=== PATIENT | female | born 1945 | race Caucasian/White ===

== ENCOUNTER 2019-02-11 11:05 | Day surgery (SDC) | payer MEDICARE, BC ==
[~2019-02-11 11:05] MED LIST: Buffered Lidocaine 1% SYRIN* 1 ML/SYRINGE INTRADERM ONE; Lactated Ringers 1000 ML Bag* 1,000 ML IV SCH; Sodium Citrate/Citric Acid* 15 ML UDC PO ONE
[2019-02-11] MEDS ORDERED: Sodium Citrate/Citric Acid* 15 ML UDC ONE (11:29)
[2019-02-11] MEDS ORDERED: Buffered Lidocaine 1% SYRIN* 1 ML/SYRINGE INTRADERM ONE (11:29)
[2019-02-11] MEDS ORDERED: hydrALAZINE IV* 20 MG/ML VIAL ONE (12:27)
[2019-02-11] MEDS ORDERED: Propofol* 10 MG/ML 20 ML BTL ONE (13:05)
[2019-02-11] MEDS ORDERED: Lidocaine 2% PF * 5 ML VIAL ONE (13:05)
[2019-02-11] MEDS ORDERED: Rocuronium* 10 MG/ML VIAL ONE (13:06)
[2019-02-11] MEDS ORDERED: Midazolam* 1 MG/ML 2 ML VIAL (2 MG) ONE (13:07)
[2019-02-11] MEDS ORDERED: fentaNYL* 50 MCG/ML 2 ML VIAL (100 MCG VIAL) ONE (13:07)
[2019-02-11] MEDS ORDERED: Benzocaine/Butamben/Tetracain (CETACAINE - SINGLE USE) 5 gm TOPICAL ONE (13:07)
[2019-02-11] MEDS ORDERED: Sugammadex * 200 MG/2 ML VIAL IV PUSH ONE (13:47)
[2019-02-11] MEDS ORDERED: Naloxone* 0.4 MG/ML 1 ML VIAL IV PRN (15:01)
[2019-02-11 15:29] VITALS: BP 131/50
--- NOTE | 2019-02-11 15:41 | PRO ---
BRONCHOSCOPY REPORT: DATE OF PROCEDURE: 02/11/19 - [facility] PROCEDURE PERFORMED: Bronchoscopy with endobronchial ultrasound guided fine needle aspiration from mediastinal hilar nodes. PREPROCEDURAL DIAGNOSES: Lung nodule, PET positive lymph nodes. ANESTHESIA: General anesthesia. ANESTHESIOLOGIST: Dr. Marie DESCRIPTION OF PROCEDURE: Informed consent was obtained from the patient prior to the procedure after all the risks and benefits were thoroughly explained. Appropriate time out was performed and agreed on by attending staff. The patient was intubated with size a 8.5 endotracheal tube. Flexible Olympus bronchoscope was inserted through ET tube for airway inspection. ET tube positioning was confirmed to review 1 cm above the level of damion and the ET tube was readjusted. Station 7 lymph node was then accessed with 4 passes. Rapid onsite evaluation revealed lymphatic tissue with no malignant cells. Station R4 was then assessed with 2 passes. Rapid onsite evaluation revealed lymphatic tissue on pass 2 with no malignant cells. R10 was also accessed with 2 passes. Rapid onsite evaluation revealed lymphatic tissue with no malignant cells. R12 was also enlarged and was accessed with 2 passes. Rapid onsite evaluation revealed lymphatic tissue with no malignant cells. Rest of the specimen was placed in CytoLyt. Thin secretions were noted and were suctioned. No enlarged lymph nodes were seen on the left side. The patient tolerated the procedure well. The patient was extubated and seen in Recovery in optimal condition. [id number]/[facility] #: [id number] [facility]
== END 2019-02-11 15:29 | disposition home or self-care (01) ==
LOC: OR 11:05
PROVIDERS: ATTEND Internal Medicine
DX: J98.4 Other disorders of lung (principal); R59.0 Localized enlarged lymph nodes; Z87.891 Personal history of nicotine dependence; Z85.3 Personal history of malignant neoplasm of breast; I10 Essential (primary) hypertension; E78.00 Pure hypercholesterolemia, unspecified; Z85.828 Personal history of other malignant neoplasm of skin
CPT/HCPCS: 88172; 88173; 88177; 88305; A9270-GY; J0360; J2250; J2704; J3010

== ENCOUNTER → 2019-07-22 07:37 | Day surgery (SDC) | payer MEDICARE, BC ==
[~2019-07-22 07:37] MED LIST changes: +Cyclopentolate 1% OPTH.SOL* 2 ML BTL ONE; +Ketorolac 0.5% OPHTH (NF) 0.5 % 5 ML BTL ONE; -Lactated Ringers 1000 ML Bag* 1,000 ML IV SCH; +Lidocaine 1% MPF ** 5 ML VIAL ONE; +Lidocaine 2% w/ EPI 1:200,000* 20 ML SDV VIAL ONE; +Midazolam* 1 MG/ML 2 ML VIAL (2 MG) ONE; +Neomycin/Polymy/Dex OPTH.SUSP* MAXITROL 0.1% 5 ML ONE; +Phenylephrine OPHTH SOL 2.5%* 2 ML ONE; +Povidone Iodine 5% OPTH* 30 ML BTL ONE; +Proparacaine 0.5% OPHTH.SOL* 15 ML BTL ONE; -Sodium Citrate/Citric Acid* 15 ML UDC PO ONE; +acetaZOLAMIDE TAB* 250 MG ONE
--- NOTE | 2019-07-22 11:15 | OP ---
OPERATIVE NOTE: DATE OF OPERATION: 07/22/19 DATE OF : 43 SURGEON: Khurram Madison MD. PREOPERATIVE DIAGNOSIS: Cataract, left eye. POSTOPERATIVE DIAGNOSIS: Cataract. left eye. OPERATIVE PROCEDURE: Extracapsular cataract extraction with IOL, left eye. PROCEDURE: The patient was brought to the operating room after being given 1/2% Alcaine with epineph rine drops in the preoperative area. The eye was prepped and draped in the usual sterile fashion. S terile drape and eyelid speculum were placed. Again, topical 1/2% Alcaine with epinephrine was given . A paracentesis incision was made at the 3 o'clock position with the No.75 blade. Clear cornea inc ision 2.2 x 2.2 mm was created at the 6 o'clock position starting at the anterior limbus using the 2. 2 mm keratome. The anterior chamber was irrigated with 0.4 mL of 1% non-preservative intracameral li docaine and filled with DisCoVisc. A capsulorrhexis was completed using the cystotome and the Utrata forceps. Hydrodissection was performed with balanced salt solution. The lens nucleus was removed wi th the Phacoemulsification handpiece without incident. Cortex was removed with the irrigation-aspira tion handpiece. The capsular bag was re-inflated using DisCoVisc and an [id number] implant was insert ed with the shooter. All measurements confirmed with ORA. The irrigation-aspiration handpiece was u sed to remove all residual DisCoVisc. The eye was refilled with balanced salt solution and the wound checked and found to be watertight. Topical Maxitrol drops were given. [id number]/[facility] #: [id number]
[2019-07-29 14:21] VITALS: BP 168/52
== END | disposition home or self-care (01) ==
LOC: OREAST 07:37
PROVIDERS: ATTEND Specialist
DX: H25.812 Combined forms of age-related cataract, left eye (principal); H34.8322 Tributary (branch) retinal vein occlusion, left eye, stable; I10 Essential (primary) hypertension; K21.9 Gastro-esophageal reflux disease without esophagitis; E78.00 Pure hypercholesterolemia, unspecified; Z87.891 Personal history of nicotine dependence; R91.1 Solitary pulmonary nodule; I65.22 Occlusion and stenosis of left carotid artery
CPT/HCPCS: A9270-GY; J2250; V2632

== ENCOUNTER 2019-07-29 10:19 | Day surgery (SDC) | payer MEDICARE, BC ==
[2019-07-22 10:22] VITALS: BP 136/50
[~2019-07-29 10:19] MED LIST changes: -Midazolam* 1 MG/ML 2 ML VIAL (2 MG) ONE
[2019-07-29] MEDS ORDERED: Midazolam* 1 MG/ML 2 ML VIAL (2 MG) ONE (13:16)
--- NOTE | 2019-07-29 21:16 | OP ---
DATE OF OPERATION: 07/29/19 [facility] DATE OF : 43 SURGEON: Khurram Madison MD PREOPERATIVE DIAGNOSIS: Cataract, right eye. POSTOPERATIVE DIAGNOSIS: Cataract, right eye. OPERATIVE PROCEDURE: Extracapsular cataract extraction with intraocular lens implant, right eye. DESCRIPTION OF PROCEDURE: The patient was brought to the operating room after being given 1/2% Alcaine with epinephrine drops in the preoperative area. The eye was prepped and draped in the usual sterile fashion. Sterile drape and eyelid speculum were placed. Again, topical 1/2% Alcaine with epinephrine was given. A paracentesis incision was made at the 9 o'clock position with the No.75 blade. Clear cornea incision 2.2 x 2.2-mm was created at the 12 o'clock position starting at the anterior limbus using the 2.2-mm keratome. The anterior chamber was irrigated with 0.4 mL of 1% non-preservative intracameral lidocaine and filled with DisCoVisc. A capsulorrhexis was completed using the cystotome and the Utrata forceps. Hydrodissection was performed with balanced salt solution. The lens nucleus was removed with the Phacoemulsification handpiece without incident. Cortex was removed with the irrigation-aspiration handpiece. The capsular bag was re-inflated using DisCoVisc and an [id number] implant was inserted with the shooter. The irrigation-aspiration handpiece was used to remove all residual DisCoVisc. he eye was refilled with balanced salt solution and the wound checked and found to be watertight. Topical Maxitrol drops were given. [id number]/[facility] #: [id number] [facility]
== END 2019-07-29 14:10 | disposition home or self-care (01) ==
LOC: OREAST 10:19
PROVIDERS: ATTEND Specialist
DX: H25.811 Combined forms of age-related cataract, right eye (principal); H34.8322 Tributary (branch) retinal vein occlusion, left eye, stable; I10 Essential (primary) hypertension; E78.00 Pure hypercholesterolemia, unspecified; Z87.891 Personal history of nicotine dependence; R91.1 Solitary pulmonary nodule; Z88.0 Allergy status to penicillin; Z88.1 Allergy status to other antibiotic agents
CPT/HCPCS: A9270-GY; J2250; V2632

== ENCOUNTER 2023-03-11 10:43 | Inpatient (IN) ==
[2023-03-11 11:59] LABS: ABS Lymphocytes 0.8 10^3/uL (1.0-4.8); ABS Monocytes 0.3 10^3/uL (0.0-0.9); ABS Neutrophils 4.4 10^3/uL (1.5-7.6); Eosinophil % 0.8 %; Hematocrit 31.2 % (35-45); Hemoglobin 10.7 g/dL (11.5-14.3); Lymphocyte % 14.9 %; Mean Corpuscular Hemoglobin 29.5 pg (27-33); Mean Corpuscular Hgb Conc 34.4 g/dL (31-36); Mean Corpuscular Volume 85.8 fL (80-97); Mean Platelet Volume 7.2 fL (7.5-11.2); Platelet Count 254 10^3/uL (150-450); Red Blood Count 3.63 10^6/uL (3.63-4.92); Red Cell Distribution Width 14.4 % (12-17); White Blood Count 5.7 10^3/uL (3.8-11.8)
[2023-03-11 12:21] LABS: High Sens Troponin Baseline 4 pg/mL (<15)
[2023-03-11 12:42] LABS: ALT 11 U/L (7-52); AST 16 U/L (13-39); Albumin/Globulin Ratio 1.4 (1-3); Alkaline Phosphatase 67 U/L (35-149); Anion Gap 9 mmol/L (2-16); Blood Urea Nitrogen 16 mg/dL (6-24); C Reactive Protein 8.87 mg/L (<8.01); CO2 Carbon Dioxide 25 mmol/L (22-32); Calcium 9.5 mg/dL (8.6-10.3); Chloride 101 mmol/L (101-111); Creatinine, Serum 0.89 mg/dL (0.51-0.95); Globulin 2.8 g/dL (2-4); Glucose 97 mg/dL (70-100); Potassium 4.4 mmol/L (3.5-5.0); Sodium 135 mmol/L (135-145); Total Protein 6.8 g/dL (6.4-8.9); eGFR CKD-EPI 66.3 (>60)
[2023-03-11 12:47] LABS: TSH Ultra Thyroid Stim Horm 1.18 mcIU/mL (0.34-5.60)
[2023-03-11 13:25] LABS: High Sensitivity Troponin 1 Hr 5 pg/mL (<15)
[2023-03-11 13:55] LABS: Urine Appearance Clear; Urine Bilirubin Negative (Negative); Urine Blood Negative (Negative); Urine Color Yellow; Urine Glucose Negative (Negative); Urine Ketones Trace (Negative); Urine Nitrite Negative (Negative); Urine Protein Negative (Negative); Urine Specific Gravity 1.011 (1.002-1.030); Urine Urobilinogen Negative (Negative)
[2023-03-11 14:16] LABS: Urine Bacteria Absent (Absent); Urine Red Blood Cell Trace(0-2/hpf) (Absent); Urine Squamous Epithelial Cell Present (Absent); Urine White Blood Cell Trace(0-5/hpf) (Absent)
[2023-03-11 18:46] LABS: Folate > 20.00 ng/mL (5.90-24.80)
[2023-03-11 18:47] LABS: Vitamin B12 342 pg/mL (180-914)
[2023-03-11 18:51] LABS: Vitamin D Total 25(OH) 37.6 ng/mL (20-50)
[2023-03-11] MEDS ORDERED: hydrALAZINE 20 mg/ml 1 ML Vial IV IV SLOW PU ONE (19:59)
[2023-03-11] MEDS: Enoxaparin 40 MG/0.4 ML SYR SUBCUT SCH (21:32)
[2023-03-11] MEDS: Acetaminophen IV 1 GM/100ML 1,000 MG/100 ML BAG IV PRN (21:38)
[2023-03-12] MEDS: Lidocaine PATCH 4% TOPICAL PRN (00:48)
[2023-03-12 04:56] LABS: ABS Basophils 0.1 10^3/uL (0.0-0.1); ABS Eosinophils 0.1 10^3/uL (0.0-0.5); ABS Lymphocytes 1.1 10^3/uL (1.0-4.8); ABS Monocytes 0.5 10^3/uL (0.0-0.9); ABS Neutrophils 5.3 10^3/uL (1.5-7.6); Eosinophil % 1.3 %; Hematocrit 32.3 % (35-45); Hemoglobin 11.5 g/dL (11.5-14.3); Lymphocyte % 15.3 %; Mean Corpuscular Hemoglobin 29.9 pg (27-33); Mean Corpuscular Hgb Conc 35.7 g/dL (31-36); Mean Corpuscular Volume 83.7 fL (80-97); Platelet Count 268 10^3/uL (150-450); Red Blood Count 3.85 10^6/uL (3.63-4.92); Red Cell Distribution Width 14.2 % (12-17); White Blood Count 7.1 10^3/uL (3.8-11.8)
[2023-03-12 05:12] LABS: Calcium 9.7 mg/dL (8.6-10.3); Creatinine, Serum 0.79 mg/dL (0.51-0.95); Phosphorus 3.9 mg/dL (2.5-5.0); Potassium 4.1 mmol/L (3.5-5.0); eGFR CKD-EPI 76.5 (>60)
[2023-03-12] MEDS: Acetaminophen IV 1 GM/100ML 1,000 MG/100 ML BAG IV PRN (06:25)
[2023-03-12] MEDS ORDERED: Polyethylene Glycol 3350 17 GM PACKET PO PRN (06:39)
[2023-03-12] MEDS: Multivitamins/Minerals TAB PO SCH (09:16)
[2023-03-12] MEDS: Enoxaparin 40 MG/0.4 ML SYR SUBCUT SCH (18:33)
[2023-03-12] MEDS ORDERED: Senna TAB 8.6 mg TAB PO PRN (20:23)
[2023-03-12] MEDS ORDERED: Magnesium Hydroxide LIQ 30 ML UDC PO PRN (20:23)
[2023-03-12] MEDS ORDERED: Sodium Phosphate ADULT ENEMA 133 ML BTL PR PRN (20:23)
[2023-03-12] MEDS ORDERED: Gadoteridol (CONTRAST) 279.3 MG/ML 10 ML IV ONE (21:36)
[2023-03-12] MEDS: Magnesium Hydroxide LIQ 30 ML UDC PO SCH (22:16)
[2023-03-13] MEDS: Lidocaine PATCH 4% TOPICAL PRN (02:29)
[2023-03-13 06:30] LABS: INR 1.29 (0.88-1.18)
[2023-03-13] MEDS: Magnesium Hydroxide LIQ 30 ML UDC PO SCH (11:22)
[2023-03-13] MEDS: Multivitamins/Minerals TAB PO SCH (11:24)
[2023-03-13] MEDS: Enoxaparin 40 MG/0.4 ML SYR SUBCUT SCH (19:02)
[2023-03-14] MEDS: Multivitamins/Minerals TAB PO SCH (09:12)
[2023-03-15] MEDS: Lidocaine PATCH 4% TOPICAL PRN (04:46)
[2023-03-15] MEDS ORDERED: Buffered Lidocaine 1% SYRIN 1 ml INTRADERM ONE (06:00)
[2023-03-15] MEDS: Multivitamins/Minerals TAB PO SCH (08:06)
[2023-03-15] MEDS ORDERED: Thrombin 5,000 UNITS 1 APPLIC KIT - topical use - TOPICAL ONE (10:58)
[2023-03-15] MEDS ORDERED: Lidocaine 1% w EPI 1:100,000 MDV 20 ML VIAL ONE (10:58)
[2023-03-15] MEDS ORDERED: ceFAZolin VIAL VIAL ONE (10:59)
[2023-03-15] MEDS ORDERED: Gelfoam 12-7 ADSORBABL SPONGE ONE (10:59)
[2023-03-15] MEDS ORDERED: Gelfoam Sponge SIZE 100 SPONGE ONE (11:02)
[2023-03-15] MEDS ORDERED: Rocuronium 50 mg VIAL 10 mg/ml 5 ml VIAL (50 mg) ONE (11:35)
[2023-03-15] MEDS ORDERED: Midazolam 2 mg/2 ml VIAL 1 mg/ml 2 ml VIAL (2 mg) ONE (11:35)
[2023-03-15] MEDS ORDERED: fentaNYL 250 mcg/5 ml 50 MCG/ML 5 ml VIAL (250 MCG) ONE (11:35)
[2023-03-15] MEDS ORDERED: Lidocaine 2% PF 5 ML VIAL ONE (11:40)
[2023-03-15] MEDS ORDERED: Propofol 10 MG/ML 20 ML BTL ONE (11:40)
[2023-03-15] MEDS ORDERED: ceFAZolin 2 GM in NS PREMIX 2 GM/100 ML BAG IVPB ONE (12:04)
[2023-03-15] MEDS ORDERED: Phenylephrine IV 10 MG/ML 1 ml VIAL ONE (12:58)
[2023-03-15] MEDS ORDERED: Ondansetron 4 mg VIAL 2 MG/ML 2 ml VIAL ONE (13:37)
[2023-03-15] MEDS ORDERED: Dexamethasone IV 4 MG/ML VIAL 1 ml VIAL ONE (13:37)
[2023-03-15] MEDS ORDERED: HYDROmorphone 0.5 MG/0.5 ML SYRINGE ONE (14:05)
[2023-03-15] MEDS ORDERED: Prochlorperazine 5 mg/ml 2 ml VIAL (10 mg) IV PRN (14:22)
[2023-03-15] MEDS ORDERED: Acetaminophen IV 1 GM/100ML 1,000 MG/100 ML BAG IV ONE ×2 (14:23→15:01)
[2023-03-15] MEDS ORDERED: HYDROmorphone 1 MG/1 ML SYRINGE IV PRN (14:36)
[2023-03-15] MEDS ORDERED: Naloxone 0.4 mg VIAL 0.4 mg/ml 1 ml VIAL IV PRN (14:36)
[2023-03-15] MEDS ORDERED: Metoprolol Tartrate 5 mg VIAL 5 ml VIAL (1 mg/ml) ONE (14:46)
[2023-03-15] MEDS: Lactated Ringers 1000 ml BAG 1,000 ML IV SCH (16:18)
[2023-03-15] MEDS ORDERED: Morphine 2 MG/ML SYRINGE IV PRN (16:28)
[2023-03-16] MEDS: Lactated Ringers 1000 ml BAG 1,000 ML IV SCH (00:19)
[2023-03-16 06:45] LABS: ABS Lymphocytes 0.6 10^3/uL (1.0-4.8); ABS Monocytes 0.5 10^3/uL (0.0-0.9); ABS Neutrophils 6.8 10^3/uL (1.5-7.6); Calcium 8.9 mg/dL (8.6-10.3); Hematocrit 26.3 % (35-45); Lymphocyte % 8.1 %; Mean Corpuscular Hemoglobin 29.7 pg (27-33); Mean Corpuscular Hgb Conc 34.3 g/dL (31-36); Mean Corpuscular Volume 86.6 fL (80-97); Mean Platelet Volume 7.6 fL (7.5-11.2); Platelet Count 238 10^3/uL (150-450); Potassium 4.7 mmol/L (3.5-5.0); Red Blood Count 3.03 10^6/uL (3.63-4.92); Red Cell Distribution Width 14.6 % (12-17); White Blood Count 7.9 10^3/uL (3.8-11.8)
[2023-03-16 06:51] LABS: Creatinine, Serum 0.73 mg/dL (0.51-0.95); eGFR CKD-EPI 84.1 (>60)
[2023-03-16] MEDS: Multivitamins/Minerals TAB PO SCH (08:57)
[2023-03-17 06:02] LABS: ABS Basophils 0.1 10^3/uL (0.0-0.1); ABS Eosinophils 0.1 10^3/uL (0.0-0.5); ABS Lymphocytes 1.5 10^3/uL (1.0-4.8); ABS Monocytes 0.5 10^3/uL (0.0-0.9); ABS Neutrophils 5.3 10^3/uL (1.5-7.6); Eosinophil % 1.7 %; Hemoglobin 9.5 g/dL (11.5-14.3); Lymphocyte % 19.9 %; Mean Corpuscular Hemoglobin 30.1 pg (27-33); Mean Platelet Volume 7.4 fL (7.5-11.2); Platelet Count 259 10^3/uL (150-450); Red Blood Count 3.14 10^6/uL (3.63-4.92); Red Cell Distribution Width 14.3 % (12-17); White Blood Count 7.5 10^3/uL (3.8-11.8)
[2023-03-17 06:17] LABS: Calcium 9.1 mg/dL (8.6-10.3); Creatinine, Serum 0.79 mg/dL (0.51-0.95); Potassium 4.2 mmol/L (3.5-5.0); eGFR CKD-EPI 76.5 (>60)
[2023-03-17] MEDS ORDERED: diazePAM INJ CARPUJECT 5 MG/ML SYRINGE IV ONE (06:33)
[2023-03-17] MEDS ORDERED: Acetaminophen IV 1 GM/100ML 1,000 MG/100 ML BAG IV ONE (07:22)
[2023-03-17] MEDS: Multivitamins/Minerals TAB PO SCH (08:04)
[2023-03-17] MEDS ORDERED: Dexamethasone IV 4 MG/ML VIAL 1 ml VIAL IV SLOW PU ONE (09:47)
[2023-03-18] MEDS: Multivitamins/Minerals TAB PO SCH (09:39)
[2023-03-19 05:48] VITALS: BP 168/67
[2023-03-19] MEDS: Multivitamins/Minerals TAB PO SCH (08:23)
== END 2023-03-19 09:06 | DRG 518 ==
LOC: EDHOLD 10:43 → ED 10:43 → EDHOLD 18:52 → MED 03-12 10:58 → SUATTDRO 03-13 13:06 → SSU 03-15 15:29
PROVIDERS: ADMIT Internal Medicine; ATTEND Hospitalist

== ENCOUNTER 2023-03-18 14:42 | Inpatient (IN) ==
[2023-03-19] MEDS ORDERED: Magnesium Hydroxide LIQ 30 ML UDC PO PRN (11:12)
[2023-03-19] MEDS ORDERED: Senna TAB 8.6 mg TAB PO PRN (11:12)
[2023-03-19] MEDS ORDERED: Polyethylene Glycol 3350 17 GM PACKET PO PRN (19:59)
[2023-03-20 07:38] LABS: ABS Lymphocytes 0.5 10^3/uL (1.0-4.8); ABS Monocytes 0.2 10^3/uL (0.0-0.9); ABS Neutrophils 5.9 10^3/uL (1.5-7.6); Hematocrit 30.2 % (35-45); Hemoglobin 10.4 g/dL (11.5-14.3); Lymphocyte % 7.3 %; Mean Corpuscular Hemoglobin 29.9 pg (27-33); Mean Corpuscular Hgb Conc 34.6 g/dL (31-36); Mean Corpuscular Volume 86.4 fL (80-97); Mean Platelet Volume 7.3 fL (7.5-11.2); Platelet Count 353 10^3/uL (150-450); Red Blood Count 3.49 10^6/uL (3.63-4.92); Red Cell Distribution Width 14.2 % (12-17); White Blood Count 6.6 10^3/uL (3.8-11.8)
[2023-03-20 07:42] LABS: Albumin 3.9 g/dL (3.2-5.2); Albumin/Globulin Ratio 1.4 (1-3); Calcium 8.5 mg/dL (8.6-10.3); Creatinine, Serum 0.76 mg/dL (0.51-0.95); Globulin 2.8 g/dL (2-4); Potassium 4.4 mmol/L (3.5-5.0); Total Bilirubin 0.5 mg/dL (0.2-1.0); Total Protein 6.7 g/dL (6.4-8.9); eGFR CKD-EPI 80.2 (>60)
[2023-03-20] MEDS: Heparin 5000 UNITS/ML 1 mL VIAL SUBCUT SCH (21:33)
[2023-03-21] MEDS: Heparin 5000 UNITS/ML 1 mL VIAL SUBCUT SCH ×2 (07:29→21:45)
[2023-03-22 09:06] VITALS: BP 142/60
[2023-03-22] MEDS ORDERED: Iohexol 350 (CONTRAST) 500 ML MDV IV ONE (09:47)
== END 2023-03-22 09:45 | disposition short-term general hospital (02) | DRG 552 ==
LOC: PMRU 03-19 10:38 → UNDODISIN 03-22 09:45
PROVIDERS: ADMIT Physical Medicine & Rehabilitation; ATTEND Physical Medicine & Rehabilitation

== ENCOUNTER 2023-03-28 10:01 | Inpatient (IN) ==
[2023-03-28] MEDS ORDERED: Senna TAB 8.6 mg TAB PO PRN (16:42)
[2023-03-28] MEDS: Magnesium Hydroxide LIQ 30 ML UDC PO PRN (21:27)
[2023-03-28] MEDS: Heparin 5000 UNITS/ML 1 mL VIAL SUBCUT SCH (21:28)
[2023-03-29 06:22] LABS: ABS Eosinophils 0.2 10^3/uL (0.0-0.5); ABS Lymphocytes 0.7 10^3/uL (1.0-4.8); ABS Monocytes 0.6 10^3/uL (0.0-0.9); ABS Neutrophils 4.5 10^3/uL (1.5-7.6); Eosinophil % 3.1 %; Hematocrit 26.1 % (35-45); Hemoglobin 9.2 g/dL (11.5-14.3); Lymphocyte % 11.7 %; Mean Corpuscular Hemoglobin 30.1 pg (27-33); Mean Corpuscular Hgb Conc 35.1 g/dL (31-36); Mean Corpuscular Volume 85.6 fL (80-97); Mean Platelet Volume 6.2 fL (7.5-11.2); Platelet Count 369 10^3/uL (150-450); Red Blood Count 3.05 10^6/uL (3.63-4.92); Red Cell Distribution Width 14.4 % (12-17)
[2023-03-29 06:44] LABS: Albumin 3.3 g/dL (3.2-5.2); Albumin/Globulin Ratio 1.1 (1-3); Calcium 8.8 mg/dL (8.6-10.3); Creatinine, Serum 1.12 mg/dL (0.51-0.95); Globulin 2.9 g/dL (2-4); Potassium 4.5 mmol/L (3.5-5.0); Total Bilirubin 0.5 mg/dL (0.2-1.0); Total Protein 6.2 g/dL (6.4-8.9); eGFR CKD-EPI 50.3 (>60)
[2023-03-29] MEDS: Heparin 5000 UNITS/ML 1 mL VIAL SUBCUT SCH ×2 (08:28→21:55)
[2023-03-30] MEDS: Heparin 5000 UNITS/ML 1 mL VIAL SUBCUT SCH ×2 (09:32→21:02)
[2023-03-30] MEDS: Magnesium Hydroxide LIQ 30 ML UDC PO PRN (20:55)
[2023-03-31] MEDS: Heparin 5000 UNITS/ML 1 mL VIAL SUBCUT SCH ×2 (08:53→20:58)
[2023-04-01] MEDS: Heparin 5000 UNITS/ML 1 mL VIAL SUBCUT SCH ×2 (08:32→20:43)
[2023-04-02] MEDS: Heparin 5000 UNITS/ML 1 mL VIAL SUBCUT SCH ×2 (08:05→20:58)
[2023-04-03] MEDS: Heparin 5000 UNITS/ML 1 mL VIAL SUBCUT SCH ×2 (07:21→21:26)
[2023-04-04] MEDS: Heparin 5000 UNITS/ML 1 mL VIAL SUBCUT SCH ×2 (07:30→21:36)
[2023-04-05 04:58] VITALS: BP 127/64
[2023-04-05 06:07] LABS: ABS Basophils 0.1 10^3/uL (0.0-0.1); ABS Eosinophils 0.2 10^3/uL (0.0-0.5); ABS Lymphocytes 0.7 10^3/uL (1.0-4.8); ABS Monocytes 0.3 10^3/uL (0.0-0.9); ABS Neutrophils 1.7 10^3/uL (1.5-7.6); Hematocrit 25.4 % (35-45); Hemoglobin 8.8 g/dL (11.5-14.3); Lymphocyte % 24.6 %; Mean Corpuscular Hemoglobin 29.9 pg (27-33); Mean Corpuscular Hgb Conc 34.7 g/dL (31-36); Mean Corpuscular Volume 86.4 fL (80-97); Mean Platelet Volume 6.8 fL (7.5-11.2); Nucleated Red Blood Cells % 0.1 /100 WBC (0.0-0.4); Platelet Count 340 10^3/uL (150-450); Red Blood Count 2.94 10^6/uL (3.63-4.92); Red Cell Distribution Width 14.5 % (12-17)
[2023-04-05 06:24] LABS: Albumin 3.4 g/dL (3.2-5.2); Albumin/Globulin Ratio 1.2 (1-3); Calcium 8.7 mg/dL (8.6-10.3); Creatinine, Serum 1.24 mg/dL (0.51-0.95); Globulin 2.8 g/dL (2-4); Potassium 4.6 mmol/L (3.5-5.0); Total Bilirubin 0.5 mg/dL (0.2-1.0); Total Protein 6.2 g/dL (6.4-8.9); eGFR CKD-EPI 44.5 (>60)
[2023-04-05] MEDS: Heparin 5000 UNITS/ML 1 mL VIAL SUBCUT SCH (08:34)
== END 2023-04-05 16:49 | disposition home or self-care (01) | DRG 551 ==
LOC: PMRU 13:55
PROVIDERS: ADMIT Physical Medicine & Rehabilitation; ATTEND Physical Medicine & Rehabilitation

== ENCOUNTER 2024-07-14 16:39 | Observation (INO) ==
[2024-07-14] MEDS: Morphine 4 MG/ML VIAL (1 ml) IV ONE ×2 (17:57→20:54)
[2024-07-14] MEDS: Ondansetron 4 mg VIAL 2 MG/ML 2 ml VIAL IV ONE (17:57)
[2024-07-14 18:00] LABS: ABS Basophils 0.1 10^3/uL (0.0-0.1); ABS Lymphocytes 0.4 10^3/uL (1.0-4.8); ABS Monocytes 0.3 10^3/uL (0.0-0.9); ABS Neutrophils 11.8 10^3/uL (1.5-7.6); Eosinophil % 0.1 %; Hematocrit 36.3 % (35-45); Lymphocyte % 3.5 %; Mean Corpuscular Hemoglobin 26.6 pg (27-33); Mean Corpuscular Hgb Conc 33.2 g/dL (31-36); Mean Corpuscular Volume 80.2 fL (80-97); Mean Platelet Volume 6.8 fL (7.5-11.2); Platelet Count 556 10^3/uL (150-450); Red Blood Count 4.52 10^6/uL (3.63-4.92); Red Cell Distribution Width 15.6 % (12-17); White Blood Count 12.7 10^3/uL (3.8-11.8)
[2024-07-14 18:01] LABS: INR 1.3 (0.85-1.14)
[2024-07-14 18:02] LABS: Urine Appearance Turbid; Urine Bilirubin Negative (Negative); Urine Blood Negative (Negative); Urine Color Yellow; Urine Glucose Negative (Negative); Urine Ketones Negative (Negative); Urine Nitrite Negative (Negative); Urine Protein Trace (Negative); Urine Urobilinogen Negative (Negative)
[2024-07-14 18:14] LABS: High Sens Troponin Baseline 24 pg/mL (<15)
[2024-07-14 18:43] LABS: ALT 19 U/L (7-52); Albumin 3.9 g/dL (3.2-5.2); Albumin/Globulin Ratio 1.2 (1-3); Alkaline Phosphatase 115 U/L (35-149); Anion Gap 16 mmol/L (2-16); Blood Urea Nitrogen 53 mg/dL (6-24); CO2 Carbon Dioxide 19 mmol/L (22-32); Chloride 96 mmol/L (101-111); Creatinine, Serum 1.21 mg/dL (0.51-0.95); Globulin 3.3 g/dL (2-4); Glucose 116 mg/dL (70-100); Sodium 131 mmol/L (135-145); Total Bilirubin 0.7 mg/dL (0.2-1.0); Total Protein 7.2 g/dL (6.4-8.9); eGFR CKD-EPI 45.6 (>60)
[2024-07-14 19:10] LABS: Lipase 33 U/L (11.0-82.0)
[2024-07-14 19:23] LABS: High Sensitivity Troponin 1 Hr 25 pg/mL (<15)
[2024-07-14] MEDS: Iodixanol 320 (CONTRAST) 100 ML SDV IV ONE (19:47)
[2024-07-14] MEDS: Lactated Ringers 1000 ml BAG 1,000 ML IV ONE (20:05)
[2024-07-14 22:07] LABS: Potassium Redraw 5.4 mmol/L (3.5-5.0)
[2024-07-15] MEDS: Lactated Ringers 1000 ml BAG 1,000 ML IV SCH (01:52)
[2024-07-15] MEDS: Morphine 2 MG/ML SYRINGE IV PRN (01:52)
[2024-07-15] MEDS ORDERED: Acetaminophen IV 1 GM/100ML 1,000 MG/100 ML BAG IV PRN (02:44)
[2024-07-15 04:28] LABS: ABS Eosinophils 0.1 10^3/uL (0.0-0.5); ABS Lymphocytes 0.7 10^3/uL (1.0-4.8); ABS Monocytes 0.6 10^3/uL (0.0-0.9); ABS Neutrophils 7.7 10^3/uL (1.5-7.6); Eosinophil % 0.9 %; Hematocrit 32.9 % (35-45); Hemoglobin 10.9 g/dL (11.5-14.3); Lymphocyte % 7.4 %; Mean Corpuscular Hemoglobin 26.9 pg (27-33); Mean Corpuscular Hgb Conc 33.2 g/dL (31-36); Mean Corpuscular Volume 80.9 fL (80-97); Mean Platelet Volume 6.7 fL (7.5-11.2); Platelet Count 416 10^3/uL (150-450); Red Blood Count 4.07 10^6/uL (3.63-4.92); Red Cell Distribution Width 15.5 % (12-17); White Blood Count 9.1 10^3/uL (3.8-11.8)
[2024-07-15] MEDS: Enoxaparin 30 MG/0.3 ML SYR SUBCUT SCH (04:29)
[2024-07-15 04:55] LABS: Calcium 9.2 mg/dL (8.6-10.3); Creatinine, Serum 1.06 mg/dL (0.51-0.95); Magnesium 2.3 mg/dL (1.9-2.7); Phosphorus 3.4 mg/dL (2.5-5.0); Potassium 4.7 mmol/L (3.5-5.0); eGFR CKD-EPI 53.4 (>60)
[2024-07-15] MEDS: Ondansetron 4 mg VIAL 2 MG/ML 2 ml VIAL IV PRN (11:25)
[2024-07-15] MEDS ORDERED: Senna TAB 8.6 mg TAB PO PRN (12:51)
[2024-07-15] MEDS ORDERED: Ondansetron ODT 4 mg TAB 4 MG TAB SL PRN (12:51)
[2024-07-15] MEDS ORDERED: LORazepam 2 mg VIAL 1 ml IV PUSH PRN (12:51)
[2024-07-15] MEDS: Morphine ORAL CONCENTRATE 5 MG/0.25 ML ORAL.SYRIN SL PRN (21:08)
[2024-07-17 12:21] VITALS: BP 115/52
== END 2024-07-17 13:05 ==
LOC: ED 16:39 → EDHOLD 16:39 → SUATTDRO 07-15 00:12 → MEDTELE 07-15 08:41
PROVIDERS: ADMIT Internal Medicine; ATTEND Hospitalist